=== PATIENT | male | born 1960 | race Caucasian/White ===

== ENCOUNTER 2017-03-23 09:08 | Outpatient (CLI) | payer BC ==
[2017-03-23 12:28] LABS: Hemoglobin A1c 6.3 % (4.0-6.0)
[2017-03-23 12:43] LABS: Cardiac Risk 4.1 (Less than 4.5)
== END 2017-03-23 09:09 | disposition home or self-care (01) ==
LOC: NAVSJIPCSP 09:08
PROVIDERS: ATTEND Internal Medicine
DX: E78.5 Hyperlipidemia, unspecified (principal); E11.9 Type 2 diabetes mellitus without complications
CPT/HCPCS: 36415; 80061; 83036